=== PATIENT | male | born 1940 | race African-American/Black ===

== ENCOUNTER 2024-01-31 14:15 | Outpatient (CLI) | payer OTHER ==
[~2024-01-31 14:15] MED LIST: ADULT ASPIRIN81 MG; ATENOLOL100 MG; CIPRO500 MG PO; FINASTERIDE5 MG PO; FORTAMET1000 MG; GLIPIZIDE ER10 MG; HYDROCHLOROTH12.5 M1; NORVASC2.5 M1; TAMS0.4C; TAMS0.4C PO
[2024-01-31 14:52] LABS: ABG PO2 62.1 mmHg (80-100); SaO2 92.1 %
[2024-01-31 14:53] LABS: BICARBONATE 22.7 mmol/l (23-25); Tco2 23.8 mmol/l; allen test SATISFACTORY; o2 21 %; puncture site RADIAL RIGHT
== END 2024-01-31 14:21 | disposition home or self-care (01) ==
LOC: LAB 14:15
PROVIDERS: ATTEND Internal Medicine
DX: R09.02 Hypoxemia (principal)